=== PATIENT | female | born 1995 | race Caucasian/White ===

== ENCOUNTER → 2016-10-15 | Outpatient (CLI) | payer OTHER ==
[2016-10-15 14:00] LABS: MEAN CORPUSCULAR HEMOGLOBIN 27.6 pg (27.0-33.0); MEAN CORPUSCULAR HGB CONC 32.7 g/dl (32.0-36.5); MEAN CORPUSCULAR VOLUME 84.2 fl (80.0-96.0); RED CELL DISTRIBUTION WIDTH 14.2 % (11.5-14.5)
[2016-10-15 14:36] LABS: ALT/SGPT 23 U/L (12-78); AST/SGOT 16 U/L (15-37); BILIRUBIN,TOTAL 0.3 MG/DL (0.2-1.0); CREATININE FOR GFR 0.57 MG/DL (0.55-1.02); URIC ACID 3.6 MG/DL (2.6-6.0)
[2016-10-15 16:01] LABS: CREATININE, SERUM 0.6 MG/DL (0.6-1.0)
[2016-10-15 16:02] LABS: CREATININE CLEARANCE, URINE 145.7 ML/MIN (75-115)
== END ==
LOC: M LAB 12:30
PROVIDERS: ATTEND Advanced Practice Midwife
DX: O16.3 Unspecified maternal hypertension, third trimester (principal)

== ENCOUNTER 2016-10-25 11:35 | Inpatient (IN) | payer OTHER ==
[~2016-10-25] VITALS: Ht 167.6 cm; Wt 83.0 kg
[2016-10-25] VITALS (11 sets, daily range): BP systolic 123–150; BP diastolic 65–90
[2016-10-25] MEDS ORDERED: HYDR5OI TOP (11:59)
[2016-10-25] MEDS ORDERED: BENA25CA2 PO (11:59)
[2016-10-25] MEDS ORDERED: PRENTAB9 PO (12:02)
[2016-10-25] MEDS ORDERED: ALBU17IN INH (12:02)
[2016-10-25] MEDS ORDERED: PENICILLIN G POTASSIUM IV 5 MU in D5W MINI-BAG PLUS 100 ML IV STA (12:13)
--- NOTE | 2016-10-25 12:33 | HPE ---
DATE OF ADMISSION: 10/25/2016 A 21-year-old 1, para 0 female at 40-2/7 weeks gestation by a 6-week ultrasound, estimated date of confinement (EDC) 10/23/2016, presents for labor induction. She has developed worsening pruritic urticarial papules and plaques of (PUPPS) rash on her abdomen as well as her extremities, which is causing significant discomfort. The rash has not responded to treatment with topical or oral agents. She has rare contractions. She denies vaginal bleeding. COURSE: The patient initiated care at 11 weeks gestation on 04/08/2016. Her first trimester blood pressure was 130/82, weight 168 pounds. course was unremarkable with the exception of a worsening rash towards the end of on her abdomen and extremities, as mentioned above. MEDICAL HISTORY: Noncontributory. SURGICAL HISTORY: 1. Ankle surgery. 2. Tonsillectomy. 3. Umbilical hernia repair. ALLERGIES: ZITHROMAX. SOCIAL HISTORY: The patient is . She denies cigarettes, alcohol, or drug use. The patient lives at [place]. FAMILY HISTORY: Noncontributory. PHYSICAL EXAMINATION: Head and neck exam: Normal. Lungs: Clear. Heart: Regular rate and rhythm. Abdomen: Nontender, gravid. heart tones: Category 1. Cervix: 1 cm, 50%, -2 station, posterior vertex. Extremities: Nontender. She has a diffuse maculopapular rash on her extremities. She has inflamed striae on her abdomen. LABORATORY: Blood type A positive, Rubella immune, RPR nonreactive. Hepatitis B and C negative. HIV negative. Diabetes screen 128. GBS positive on 09/25/2016. ASSESSMENT: A 21-year-old 1 at 40-2/7 weeks gestation by 6-week ultrasound, presents for labor induction. The patient was admitted on 10/25/2016. Risks of induction were discussed.
[2016-10-25] MEDS: miSOPROStol 50 MCG 1/2 TAB (S0191) PO SCH ×3 (12:35→20:34)
[2016-10-25 13:02] LABS: MEAN CORPUSCULAR HEMOGLOBIN 26.8 pg (27.0-33.0); MEAN CORPUSCULAR HGB CONC 32.2 g/dl (32.0-36.5); MEAN CORPUSCULAR VOLUME 83.2 fl (80.0-96.0); RED CELL DISTRIBUTION WIDTH 15.5 % (11.5-14.5); WHITE BLOOD COUNT 7.1 K/mm3 (4.0-10.0)
[2016-10-25] MEDS ORDERED: HYDROCORTISONE 1% CREAM 30 GM TOP PRN ×2 (18:15→18:23)
[2016-10-25] MEDS ORDERED: PENICILLIN G POTASSIUM 5 MU VIAL As Ordered ONE (21:21)
[2016-10-25] MEDS ORDERED: PENICILLIN G POTASSIUM IV 5 MU in D5W MINI-BAG PLUS 100 ML IV ONE (21:30)
[2016-10-25] MEDS ORDERED: diphenhydrAMINE 25 MG CAP PO ONE (23:30)
[2016-10-25] MEDS ORDERED: BUTORPHANOL 2 MG/ML INJ (J0595) IV ONE (23:45)
[2016-10-25] MEDS ORDERED: PROMETHAZINE INJ 25 MG/ML VIAL (J2550) IV ONE (23:45)
[2016-10-26] VITALS (47 sets, daily range): BP systolic 113–156; BP diastolic 57–91
[2016-10-26] MEDS ORDERED: BUTORPHANOL 2 MG/ML INJ (J0595) As Ordered ONE (00:03)
[2016-10-26] MEDS ORDERED: PROMETHAZINE INJ 25 MG/ML VIAL (J2550) As Ordered ONE (00:04)
[2016-10-26] MEDS: PENICILLIN G POTASSIUM IV 2.5 MU in D5W 100 ML IV SCH ×4 (01:17→13:56)
[2016-10-26] MEDS ORDERED: FENTANYL 2MCG/ML ROPIVACAINE 0.2% NACL 250 ML CADD As Ordered ONE (01:53)
[2016-10-26] MEDS ORDERED: ONDANSETRON 4MG/2ML VIAL (J2405) IV PRN ×2 (02:15→16:30)
[2016-10-26] MEDS ORDERED: EPIDURAL COMMENT XX SCH (02:15)
[2016-10-26] MEDS ORDERED: NALOXONE INJ 0.4 MG/1 ML VIAL (J2310) IV PRN (02:15)
[2016-10-26] MEDS ORDERED: EPIDURAL/PCA KEYS XX PRN (02:15)
[2016-10-26] MEDS ORDERED: diphenhydrAMINE INJ 50MG/ML VIAL (J1200) IV PRN (02:15)
[2016-10-26] MEDS ORDERED: FENTANYL/ROPIVACAINE/NACL CADD 250 ML EPIDURAL SCH (02:15)
[2016-10-26] MEDS ORDERED: REFRIGERATOR IV KEYS XX PRN (02:15)
[2016-10-26] MEDS ORDERED: ePHEDrine SULFATE 25 MG/5 ML(5MG/ML) SYRINGE IV PRN (02:15)
[2016-10-26] MEDS ORDERED: LACTATED RINGER'S 1000 ML IV PRN (02:15)
[2016-10-26] MEDS ORDERED: OXYTOCIN DRIP 30 UNITS in APPROPRIATE DILUENT 1 EA IV SCH (03:15)
[2016-10-26] MEDS ORDERED: MEASLES,MUMPS,RUBELLA VACCINE INJ (MMR-II) (90707) SC SCH (16:30)
[2016-10-26] MEDS ORDERED: RHOGAM 300 MCG (1500 IU) INJ (J2790) IM SCH (16:30)
[2016-10-26] MEDS ORDERED: METHYLERGONOVINE MALEATE 0.2 MG TAB PO PRN (16:30)
[2016-10-26] MEDS ORDERED: IBUPROFEN 800 MG TAB PO PRN (16:30)
[2016-10-26] MEDS ORDERED: DIBUCAINE 1% OINTMENT 30GM TOP PRN (16:30)
[2016-10-26] MEDS ORDERED: DOCUSATE SODIUM 100 MG CAP PO PRN (16:30)
[2016-10-26] MEDS ORDERED: OXYTOCIN DRIP 30 UNITS in APPROPRIATE DILUENT 1 EA IV ONE (16:45)
[2016-10-26] MEDS ORDERED: LIDOCAINE 1% MDV INJ 50 ML VIAL INFIL ONE (17:00)
[2016-10-26] MEDS: ACETAMINOPHEN 500 MG TAB PO PRN (19:35)
[2016-10-27 06:00] VITALS: BP 129/62
--- NOTE | 2016-10-27 07:18 | DN ---
DATE: 10/26/2016 PREDELIVERY DIAGNOSIS: 40-2/7 weeks gestation, labor induction. POSTDELIVERY DIAGNOSIS: Delivered. PROCEDURE: Low forceps assisted vaginal delivery. TRACK REPAIR SUPERVISOR: Shahid Ling MD ANESTHESIA: Epidural. ESTIMATED BLOOD LOSS: 300 mL. FINDINGS: 7 pound 11 ounce female. score 9 and 9. DELIVERY SUMMARY: After approximately 3 hour 15 minute second stage, the patient was diagnosed with maternal exhaustion and arrest of descent. Brian-Dona forceps were applied at +2 station to the left occiput anterior (HAYDEN) vertex without difficulty. Delivery was accomplished with a single controlled traction along with maternal expulsive efforts. There was no nuchal cord. The shoulders delivered spontaneously with ease. The cord was doubly clamped and cut. The was handed off to the awaiting it support manager. Placenta delivered spontaneously and appeared to be intact. The patient received intravenous (IV) pitocin immediately after delivery of the placenta. A right vaginal sulcus tear was repaired with #3-0 chromic in the usual fashion. Sponge and needle counts were correct.
[2016-10-27] MEDS ORDERED: diphenhydrAMINE CREAM 30GM TOP PRN (09:00)
[2016-10-27] MEDS: PRENATAL VITAMIN TAB PO SCH (09:34)
[2016-10-27] MEDS: ACETAMINOPHEN 500 MG TAB PO PRN ×2 (09:47→15:51)
[2016-10-27] MEDS ORDERED: LIDOCAINE 1% MDV INJ 50 ML VIAL As Ordered ONE (10:59)
[2016-10-27] MEDS: diphenhydrAMINE 25 MG CAP PO PRN ×2 (17:16→23:22)
[2016-10-27 17:53] VITALS: BP 131/77
[2016-10-28 06:14] VITALS: BP 135/68
[2016-10-28] MEDS: PRENATAL VITAMIN TAB PO SCH (09:00)
[2016-10-28] MEDS ORDERED: ACET50TA PO (09:38)
[2016-10-28] MEDS ORDERED: IBUP-1114 PO (09:38)
== END 2016-10-28 12:30 | disposition home or self-care (01) | DRG 775 ==
LOC: M LDI 11:35 → M OBS 10-26 18:11
PROVIDERS: ADMIT Specialist; ATTEND Specialist
PROC: 10E0XZZ Delivery of Products of Conception, External Approach (ICD-10-PCS; principal; 2016-10-26)
PROC: 0HQ9XZZ Repair Perineum Skin, External Approach (ICD-10-PCS; 2016-10-26)
DX: O26.86 Pruritic urticarial papules and plaques of pregnancy (PUPPP) (principal); Z37.0 Single live birth; O48.0 Post-term pregnancy; Z3A.40 40 weeks gestation of pregnancy; Z88.1 Allergy status to other antibiotic agents; O32.4XX0 Maternal care for high head at term, not applicable or unspecified; O75.81 Maternal exhaustion complicating labor and delivery; O70.0 First degree perineal laceration during delivery

== ENCOUNTER → 2016-10-31 | Outpatient (REF) | payer OTHER ==
[~2016-10-31] MED LIST: ACET50TA PO; ALBU17IN INH; BENA25CA2 PO; HYDR5OI TOP; IBUP-1114 PO; PRENTAB9 PO
== END ==
LOC: M SFHCLERA 14:52
PROVIDERS: ATTEND Nurse Practitioner Family
DX: J02.9 Acute pharyngitis, unspecified (principal)

== ENCOUNTER 2016-11-06 16:01 | Emergency (ER) | payer OTHER ==
--- NOTE | 2016-11-06 16:48 | REP ---
Duplex extremity venous ultrasound: Right lower extremity. History: Recently . Right lower extremity pain. Question DVT. Findings: The deep veins are anechoic and fully compressible from the groin to the popliteal fossa in the right lower extremity. Color flow imaging is homogeneous. Spectral Doppler interrogation demonstrates intact respiratory variation in flow and normal manual augmentation of flow. There is no evidence of deep vein thrombosis. Impression: Negative right lower extremity duplex venous ultrasound. No evidence of deep vein thrombosis. Signed by Cipriano Jordan MD 11/06/2016 04:40 P
--- NOTE | 2016-11-06 17:11 | EDDOCDS ---
Physician Documentation [facility] Name: Anne Marie Stack Age: 21 yrs Sex: Female : 1995 Arrival Date: 11/06/2016 Time: 16:01 Bed Triage 3 Private MD: Simon Villela MD Disposition: 11/06/16 16:56 Discharged to Home/Self Care. Impression: Pain in right leg - CALF, INTERMITTENT. - Condition is Stable. - Discharge Instructions: Muscle Strain. - Medication Reconciliation, Local Pharmacy Hours form. - Follow up: Simon Villela; When: 1 - 2 days; Reason: Recheck today's complaints, Continuance of care. - Problem is new. - Symptoms have improved. - Notes: USE TYLENOL AND ICE IF PAIN STARTS. IF REDNESS, WARMTHOR SWELLING BEGINGS, RETURN TO THE ER, IF PAIN STILL PRESENT IN 1 WEEK, RETURN TO THE ER FOR A REPEAT ULTRASOUND, IF CONCERNING SYMPTOMS ARISE, RETURN TO THE ER, FOLLOW UP WITH YOUR DOCTOR IN 1-2 DAYS Historical: - Allergies: Azithromycin (Rash); - Home Meds: 1. Vitamin Oral tab 1 tab once daily (Last dose: 11/05/2016) 2. albuterol sulfate 90 mcg/actuation inhalation HFAA 2 puffs every 4-6 hours as needed &#13(Last dose: Unknown) - PMHx: Asthma; - PSHx: Tonsillectomy; herinia repair; right ankle fixation; - Social history: Smoking status: Patient states was never smoker of tobacco. No barriers to communication noted, The patient speaks fluent [place]. - Family history: Not pertinent. - : The pt / caregiver states he / she is not on anticoagulants. Home medication list is obtained from the patient. - Exposure Risk Screening:: None identified. 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 7 in. (170.18 cm) (R); Pain 6/10; 17:03 BP 125 / 85; Pulse 94; Resp 16; Temp 98.9(T); Pulse Ox 96% on R/A; Pain 0/10; dem1 16:03 Body Mass Index 27.57 (79.83 kg, 170.18 cm) elp MDM: 16:19 Lower Extremity R/O DVT Ordered. EDMS Signatures: Dispatcher [employer] EDMS Jackie Licona RN RN Malia Estrada RN RN Sergio Kam, RPA-C RPA-Cck7 MTDD
--- NOTE | 2016-11-06 17:11 | EDDOCDS ---
Nurse's Notes [facility] Name: Anne Marie Stack Age: 21 yrs Sex: Female : 1995 Arrival Date: 11/06/2016 Time: 16:01 Bed Triage 3 Private MD: Simon Villela MD Diagnosis: Pain in right leg-CALF, INTERMITTENT Presentation: 11/06 16:07 Presenting complaint: Patient states: Gave 11 days ago , rt calf pain x 2 days kpj was advised by her PMD to seek medical attention to rule out a blood clot. Adult Sepsis Screening: The patient does not have new or worsening altered mentation. Patient's respiratory rate is less than 22. Systolic blood pressure is greater than 100. Patient has a qSOFA score of 0- Negative Sepsis Screen. Suicide/Homicide risk assessment- the patient denies having any suicidal and/or homicidal ideations and does not present with any other emotional, behavioral or mental health complaints. Status: The patient is a dependent. Transition of care: patient was not received from another setting of care. 16:07 Acuity: BETSY Level 3 [facility] 16:07 Method Of Arrival: Walkin/Carried/Asstd [facility] Triage Assessment: 16:10 General: Appears in no apparent distress, Behavior is appropriate for age, pleasant. [facility] Pain: Location: right calf Pain currently is 5 out of 10 on a pain scale. Is intermittent. HIV screening NA for this visit Offered previously. Neurological: Level of Consciousness is awake, alert, Oriented to person, place, time. Respiratory: Airway is patent Respiratory effort is even, unlabored, Respiratory pattern is regular, symmetrical. Derm: Skin is pink, warm & dry. Musculoskeletal: Reports pain in right calf Pain is 5 out of 10 on a pain scale. 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 Vitamin Oral tab 1 tab once daily (Last dose: 11/05/2016) 2. albuterol sulfate 90 mcg/actuation inhalation HFAA 2 puffs every 4-6 hours as needed &#13(Last dose: Unknown) - PMHx: Asthma; - PSHx: Tonsillectomy; herinia repair; right ankle fixation; - Social history: Smoking status: Patient states was never smoker of tobacco. No barriers to communication noted, The patient speaks fluent Turkmen. - Family history: Not pertinent. - : The pt / caregiver states he / she is not on anticoagulants. Home medication list is obtained from the patient. - Exposure Risk Screening:: None identified. Screenin:07 Screening information is obtained from the patient. Fall risk: No risks identified. [facility] Assistance ADL's: requires no assistance with activities of daily living. Abuse/DV Screen: The patient / caregiver reports he/she is: not in a situation that causes fear, pain or injury. Nutritional screening: No deficits noted. Advance Directives: There is no active DNR order. home support is adequate. Assessment: 17:07 General: Appears in no apparent distress, comfortable, Behavior is appropriate for age, [facility] cooperative. Respiratory: Airway is patent Respiratory effort is even, unlabored, Respiratory pattern is regular, symmetrical. Derm: Skin is pink, warm & dry. Vital Signs: 16:03 BP 155 / 85; Pulse 84; Resp 18; Temp 99.6(O); Pulse Ox 98% on R/A; Weight 79.83 kg (R); elp Height 5 ft. 7 in. (170.18 cm) (R); Pain 6/10; 17:03 BP 125 / 85; Pulse 94; Resp 16; Temp 98.9(T); Pulse Ox 96% on R/A; Pain 0/10; dem1 16:03 Body Mass Index 27.57 (79.83 kg, 170.18 cm) [facility] Vitals: 16:03 Log In Time: November 06, 2016 at 16:01. [facility] ED Course: 16:03 Patient visited by Livia Tidwell PCA. elp 16:03 Smion Villela is Private Physician. elp 16:03 Patient moved to Waiting elp 16:04 Patient visited by Livia Tidwell PCA. elp 16:04 Patient moved to Pre RCE elp 16:08 Triage Initiated [facility] 16:27 Patient moved to Triage 3 dwg 16:28 Patient moved to Pre RCE dwg 16:39 Sergio Mcdowell RPA-C is [facility]. ck7 16:39 Oksana Rosales MD is Attending Physician. ck7 16:39 Patient visited by Sergio Mcdowell RPA-C. ck7 16:39 Patient moved to Triage 3 dem1 16:56 Simon Villela is Referral Physician. ck7 17:04 Patient visited by Jean Pierre Yun. dem1 17:07 The patient / caregiver is instructed regarding the plan of care and ED course. [facility] 17:07 No IV's were initiated during this patient's visit. No procedures done that require [facility] assistance. Order Results: There are currently no results for this order. Outcome: 16:56 Discharge ordered by Provider. ck7 17:07 Discharge Assessment: Patient awake, alert and oriented x 3. No cognitive and/or [facility] functional deficits noted. Patient verbalized understanding of disposition instructions. patient administered narcotics - no. The following High Risk Discharge criteria are identified: None. Discharged to home ambulatory, with family. Condition: good Condition: stable Condition: improved. Discharge instructions given to patient, Instructed on discharge instructions, follow up and referral plans. Demonstrated understanding of instructions, Pt was receptive of discharge instructions/ teaching. No special radiology studies were completed. Property :Personal belongings accompany Pt. 17:09 Patient left the ED. [facility] Signatures: J Carlos Hernandez, RN RN Jackie Ordoñez RN RN [facility] Jean Pierre Yun dem1 Malia MeadRN MORE [facility] Sergio Mcdowell RPA-C RPA-Cck7 Livia Tidwell, RL GARAGE HELPER elp MTDD
--- NOTE | 2016-11-08 18:10 | EDDOCDS ---
Physician Documentation [facility] Name: Anne Marie Stack Age: 21 yrs Sex: Female : 1995 Arrival Date: 11/06/2016 Time: 16:01 Bed Triage 3 Private MD: Simon Villela MD Disposition: 11/06/16 16:56 Discharged to Home/Self Care. Impression: Pain in right leg - CALF, INTERMITTENT. - Condition is Stable. - Discharge Instructions: Muscle Strain. - Medication Reconciliation, Local Pharmacy Hours form. - Follow up: Simon Villela; When: 1 - 2 days; Reason: Recheck today's complaints, Continuance of care. - Problem is new. - Symptoms have improved. - Notes: USE TYLENOL AND ICE IF PAIN STARTS. IF REDNESS, WARMTHOR SWELLING BEGINGS, RETURN TO THE ER, IF PAIN STILL PRESENT IN 1 WEEK, RETURN TO THE ER FOR A REPEAT ULTRASOUND, IF CONCERNING SYMPTOMS ARISE, RETURN TO THE ER, FOLLOW UP WITH YOUR DOCTOR IN 1-2 DAYS Historical: - Allergies: Azithromycin (Rash); - Home Meds: 1. Vitamin Oral tab 1 tab once daily (Last dose: 11/05/2016) 2. albuterol sulfate 90 mcg/actuation inhalation HFAA 2 puffs every 4-6 hours as needed &#13(Last dose: Unknown) - PMHx: Asthma; - PSHx: Tonsillectomy; herinia repair; right ankle fixation; - Social history: Smoking status: Patient states was never smoker of tobacco. No barriers to communication noted, The patient speaks fluent Afghan. - Family history: Not pertinent. - : The pt / caregiver states he / she is not on anticoagulants. Home medication list is obtained from the patient. - Exposure Risk Screening:: None identified. 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 7 in. (170.18 cm) (R); Pain 6/10; 17:03 BP 125 / 85; Pulse 94; Resp 16; Temp 98.9(T); Pulse Ox 96% on R/A; Pain 0/10; dem1 16:03 Body Mass Index 27.57 (79.83 kg, 170.18 cm) elp MDM: 16:19 Lower Extremity R/O DVT Ordered. EDMS 17:15 [facility] Payment Agreement was scanned into [employer] and attached to record. gjb 17:15 Financial registration complete. gjb 11/07 11:47 T-Sheet-- Draft Copy was scanned into [email or web address] and attached to record. gb Signatures: Dispatcher [employer] EDMS Jackie Licona, RN RN Nayeli Chacon, Reg Reg Malia HaddadRN RN Sergio Kam, RPA-C RPA-Cck7 Julienne Rios The chart was reviewed and I authenticate all verbal orders and agree with the evaluation and treatment provided.Attachments: 11/06 17:15 [facility] Payment Agreement b 11/07 11:47 T-Sheet-- Draft Copy gb Chart Complete MTDD
--- NOTE | 2016-11-08 18:10 | EDDOCDS ---
Physician Documentation [facility] Name: Anne Marie Stack Age: 21 yrs Sex: Female : 1995 Arrival Date: 11/06/2016 Time: 16:01 Bed Triage 3 Private MD: Simon Villela MD Disposition: 11/06/16 16:56 Discharged to Home/Self Care. Impression: Pain in right leg - CALF, INTERMITTENT. - Condition is Stable. - Discharge Instructions: Muscle Strain. - Medication Reconciliation, Local Pharmacy Hours form. - Follow up: Simon Villela; When: 1 - 2 days; Reason: Recheck today's complaints, Continuance of care. - Problem is new. - Symptoms have improved. - Notes: USE TYLENOL AND ICE IF PAIN STARTS. IF REDNESS, WARMTHOR SWELLING BEGINGS, RETURN TO THE ER, IF PAIN STILL PRESENT IN 1 WEEK, RETURN TO THE ER FOR A REPEAT ULTRASOUND, IF CONCERNING SYMPTOMS ARISE, RETURN TO THE ER, FOLLOW UP WITH YOUR DOCTOR IN 1-2 DAYS Historical: - Allergies: Azithromycin (Rash); - Home Meds: 1. Vitamin Oral tab 1 tab once daily (Last dose: 11/05/2016) 2. albuterol sulfate 90 mcg/actuation inhalation HFAA 2 puffs every 4-6 hours as needed &#13(Last dose: Unknown) - PMHx: Asthma; - PSHx: Tonsillectomy; herinia repair; right ankle fixation; - Social history: Smoking status: Patient states was never smoker of tobacco. No barriers to communication noted, The patient speaks fluent [place]. - Family history: Not pertinent. - : The pt / caregiver states he / she is not on anticoagulants. Home medication list is obtained from the patient. - Exposure Risk Screening:: None identified. 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 Vital Signs: 16:03 BP 155 / 85; Pulse 84; Resp 18; Temp 99.6(O); Pulse Ox 98% on R/A; Weight 79.83 kg / elp 176 lbs (R); Height 5 ft. 7 in. (170.18 cm) (R); Pain 6/10; 17:03 BP 125 / 85; Pulse 94; Resp 16; Temp 98.9(T); Pulse Ox 96% on R/A; Pain 0/10; dem1 16:03 Body Mass Index 27.57 (79.83 kg, 170.18 cm) elp MDM: 16:19 Lower Extremity R/O DVT Ordered. EDMS 17:15 [facility] Payment Agreement was scanned into [employer] and attached to record. gjb 17:15 Financial registration complete. gjb 11/07 11:47 T-Sheet-- Draft Copy was scanned into [employer] and attached to record. gb Signatures: Dispatcher [employer] EDMS Jackie Licona, RN RN Nayeli Chacon, Reg Reg Malia HaddadRN RN Sergio Kam, RPA-C RPA-Cck7 Julienne Rios The chart was reviewed and I authenticate all verbal orders and agree with the evaluation and treatment provided.Attachments: 11/06 17:15 [facility] Payment Agreement b 11/07 11:47 T-Sheet-- Draft Copy gb Chart Complete MTDD
--- NOTE | 2016-11-08 18:10 | EDDOCDS ---
Nurse's Notes [facility] Name: Anne Marie Stack Age: 21 yrs Sex: Female : 1995 Arrival Date: 11/06/2016 Time: 16:01 Bed Triage 3 Private MD: Simon Villela MD Diagnosis: Pain in right leg-CALF, INTERMITTENT Presentation: 11/06 16:07 Presenting complaint: Patient states: Gave 11 days ago , rt calf pain x 2 days kpj was advised by her PMD to seek medical attention to rule out a blood clot. Adult Sepsis Screening: The patient does not have new or worsening altered mentation. Patient's respiratory rate is less than 22. Systolic blood pressure is greater than 100. Patient has a qSOFA score of 0- Negative Sepsis Screen. Suicide/Homicide risk assessment- the patient denies having any suicidal and/or homicidal ideations and does not present with any other emotional, behavioral or mental health complaints. Status: The patient is a dependent. Transition of care: patient was not received from another setting of care. 16:07 Acuity: BETSY Level 3 [facility] 16:07 Method Of Arrival: Walkin/Carried/Asstd [facility] Triage Assessment: 16:10 General: Appears in no apparent distress, Behavior is appropriate for age, pleasant. [facility] Pain: Location: right calf Pain currently is 5 out of 10 on a pain scale. Is intermittent. HIV screening NA for this visit Offered previously. Neurological: Level of Consciousness is awake, alert, Oriented to person, place, time. Respiratory: Airway is patent Respiratory effort is even, unlabored, Respiratory pattern is regular, symmetrical. Derm: Skin is pink, warm & dry. Musculoskeletal: Reports pain in right calf Pain is 5 out of 10 on a pain scale. 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 Vitamin Oral tab 1 tab once daily (Last dose: 11/05/2016) 2. albuterol sulfate 90 mcg/actuation inhalation HFAA 2 puffs every 4-6 hours as needed &#13(Last dose: Unknown) - PMHx: Asthma; - PSHx: Tonsillectomy; herinia repair; right ankle fixation; - Social history: Smoking status: Patient states was never smoker of tobacco. No barriers to communication noted, The patient speaks fluent [place]ican. - Family history: Not pertinent. - : The pt / caregiver states he / she is not on anticoagulants. Home medication list is obtained from the patient. - Exposure Risk Screening:: None identified. Screenin:07 Screening information is obtained from the patient. Fall risk: No risks identified. [facility] Assistance ADL's: requires no assistance with activities of daily living. Abuse/DV Screen: The patient / caregiver reports he/she is: not in a situation that causes fear, pain or injury. Nutritional screening: No deficits noted. Advance Directives: There is no active DNR order. home support is adequate. Assessment: 17:07 General: Appears in no apparent distress, comfortable, Behavior is appropriate for age, [facility] cooperative. Respiratory: Airway is patent Respiratory effort is even, unlabored, Respiratory pattern is regular, symmetrical. Derm: Skin is pink, warm & dry. Vital Signs: 16:03 BP 155 / 85; Pulse 84; Resp 18; Temp 99.6(O); Pulse Ox 98% on R/A; Weight 79.83 kg (R); elp Height 5 ft. 7 in. (170.18 cm) (R); Pain 6/10; 17:03 BP 125 / 85; Pulse 94; Resp 16; Temp 98.9(T); Pulse Ox 96% on R/A; Pain 0/10; dem1 16:03 Body Mass Index 27.57 (79.83 kg, 170.18 cm) [facility] Vitals: 16:03 Log In Time: November 06, 2016 at 16:01. [facility] ED Course: 16:03 Patient visited by Livia Tidwell PCA. elp 16:03 Simon Villela is Private Physician. elp 16:03 Patient moved to Waiting elp 16:04 Patient visited by Livia Tidwell PCA. elp 16:04 Patient moved to Pre RCE elp 16:08 Triage Initiated [facility] 16:27 Patient moved to Triage 3 dwg 16:28 Patient moved to Pre RCE dwg 16:39 Sergio Mcdowell RPA-C is [facility]. ck7 16:39 Oksana Rosales MD is Attending Physician. ck7 16:39 Patient visited by Sergio Mcdowell RPA-C. ck7 16:39 Patient moved to Triage 3 dem1 16:56 Simon Villela is Referral Physician. ck7 17:04 Patient visited by Jean Pierre Yun. dem1 17:07 The patient / caregiver is instructed regarding the plan of care and ED course. [facility] 17:07 No IV's were initiated during this patient's visit. No procedures done that require [facility] assistance. 17:15 Patient name changed from Anne Marie\S\Evelyne\S\Sreekanth\S\ to Anne Marie\S\ \S\[place]. EDMS 17:15 [facility] Payment Agreement was scanned into [employer] and attached to record. gjb 17:18 US Lower Extremity R/O DVT Returned. EDNJ 11/07 11:47 T-Sheet-- Draft Copy was scanned into [employer] and attached to record. gb Order Results: Radiology Order: US Lower Extremity R/O DVT Test: US Lower Extremity R/O DVT REASON FOR EXAMINATION: pain; Duplex extremity venous ultrasound: Right lower extremity.; ; History: Recently . Right lower extremity pain. Question DVT.; ; Findings: The deep veins are anechoic and fully compressible from the groin to; the popliteal fossa in the right lower extremity. Color flow imaging is; homogeneous. Spectral Doppler interrogation demonstrates intact respiratory; variation in flow and normal manual augmentation of flow. There is no evidence; of deep vein thrombosis.; ; Impression:; ; Negative right lower extremity duplex venous ultrasound. No evidence of deep; vein thrombosis.; ; ; Signed by; Cipriano Jordan MD 11/06/2016 04:40 P; Outcome: 11/06 16:56 Discharge ordered by Provider. [facility] 17:07 Discharge Assessment: Patient awake, alert and oriented x 3. No cognitive and/or [facility] functional deficits noted. Patient verbalized understanding of disposition instructions. patient administered narcotics - no. The following High Risk Discharge criteria are identified: None. Discharged to home ambulatory, with family. Condition: good Condition: stable Condition: improved. Discharge instructions given to patient, Instructed on discharge instructions, follow up and referral plans. Demonstrated understanding of instructions, Pt was receptive of discharge instructions/ teaching. No special radiology studies were completed. Property :Personal belongings accompany Pt. 17:09 Patient left the ED. [facility] Signatures: Dispatcher [facility] J Carlos Ortiz, RN RN dwg Jackie Licona RN RN [facility] Nayeli Jaimes, Roman Reg Jean Pierre Sun dem1 Malia Mead RN RN [facility] Sergio Mcdowell, RPA-C RPA-Cck7 Livia Tidwell, RUBBER MOULDING MACHINE OPERATOR RUBBER MOULDING MACHINE OPERATOR elp Julienne Rios Chart Complete MTDD
== END 2016-11-06 17:09 | disposition home or self-care (01) ==
LOC: M ED 16:01
DX: O90.89 Other complications of the puerperium, not elsewhere classified (principal); M79.661 Pain in right lower leg; Z88.1 Allergy status to other antibiotic agents

== ENCOUNTER → 2017-01-07 | Outpatient (REF) | payer OTHER | LOC: M SFHCLERA 16:58 | PROVIDERS: ATTEND Family Medicine | DX: R35.0 Frequency of micturition (principal) ==

== ENCOUNTER → 2017-04-26 | Outpatient (REF) | payer OTHER | LOC: M SFHCLERA 10:31 | PROVIDERS: ATTEND Nurse Practitioner Family | DX: N39.0 Urinary tract infection, site not specified (principal) ==

== ENCOUNTER → 2017-09-18 | Outpatient (REF) | payer OTHER | LOC: M SFHCLERA 15:08 | PROVIDERS: ATTEND Physician Assistant | DX: N39.0 Urinary tract infection, site not specified (principal) ==

== ENCOUNTER → 2018-01-23 | Outpatient (REF) | payer OTHER ==
[2018-01-23 18:48] LABS: HEMATOCRIT 40.4 % (36.0-47.0); MEAN CORPUSCULAR HEMOGLOBIN 27.3 pg (27.0-33.0); MEAN CORPUSCULAR HGB CONC 32.2 g/dl (32.0-36.5); MEAN CORPUSCULAR VOLUME 84.9 fl (80.0-96.0); PLATELET COUNT, AUTOMATED 349 10^3/uL (150-450); RED BLOOD COUNT 4.76 10^6/uL (4.00-5.40); WHITE BLOOD COUNT 5.9 10^3/uL (4.0-10.0)
== END ==
LOC: M SFHCLERA 10:44
DX: R53.83 Other fatigue (principal)

== ENCOUNTER → 2018-05-19 | Outpatient (REF) | payer OTHER | LOC: M LAB REF 17:32 | DX: Z12.4 Encounter for screening for malignant neoplasm of cervix (principal) ==